=== PATIENT | male | born 1940 | race Caucasian/White ===

== ENCOUNTER 2017-01-15 12:24 | Emergency (ER) | payer MEDICARE, BC ==
[2017-01-15] MEDS ORDERED: Bacitracin Oint 1 GM U/D Packet TOP ONE (12:58)
--- NOTE | 2017-01-15 13:08 | EDM.PDOC ---
ED HPI GENERAL MEDICAL PROBLEM - General Chief Complaint: Laceration Stated Complaint: LEFT INDEX FINGER CUT Time Seen by Provider: 01/15/17 12:50 Source of Information: Reports: Patient History Limitations: Reports: No Limitations - History of Present Illness INITIAL COMMENTS - FREE TEXT/NARRATIVE: 76 yo male thea from [facility] presents with a finger laceration incurred when he was field dressing a deer he shot. Tetanus last 3 yrs ago. Onset: Today Onset Date: 01/15/17 Onset Time: 11:05 Duration: Minutes: Location: Reports: Upper Extremity, Left Quality: Reports: Burning Severity: Mild Improves with: Reports: None Worsens with: Reports: None Associated Symptoms: Reports: No Other Symptoms Treatments [employer]: Reports: Other (see below) (wrapped with gauze) - Related Data Allergies Allergy/AdvReac Type Severity Reaction Status Date / Time No Known Allergies Allergy Verified 09/23/14 13:50 Home Meds: Home Meds Atenolol [Tenormin] 100 mg PO DAILY 01/15/17 [History] Folic Acid [Folic Acid] 1 mg PO DAILY 01/15/17 [History] Losartan [Cozaar] 100 mg PO DAILY 01/15/17 [History] Methotrexate Sodium [Methotrexate] 7.5 mg PO ASDIRECTED 01/15/17 [History] Minoxidil [Loniten] 10 mg PO DAILY 01/15/17 [History] Triamterene/Hydrochlorothiazid [Triamterene-HCTZ 75-50 MG] 1 tab PO DAILY [History] ED ROS GENERAL - Review of Systems Review Of Systems: See Below Constitutional: Reports: No Symptoms Musculoskeletal: Reports: No Symptoms Skin: Reports: Wound Neurological: Reports: No Symptoms ED EXAM, SKIN/RASH Exam: See Below Exam Limited By: No Limitations General Appearance: Alert, WD/WN, No Apparent Distress Neurological: Alert, Oriented, CN II-XII Intact, Normal Cognition, No Motor/ Sensory Deficits Psychiatric: Normal Affect, Normal Mood Skin: Warm, Dry, Normal Color, No Rash, Wound/Incision (2.2 cm linear laceration to the prox L index finger.) Location, Skin: Upper Extremity, Left Characteristics: Linear Associated features: Tenderness Lymphatic: No Adenopathy ED SKIN PROCEDURES - Laceration/Wound Repair Left Proximal Finger Lac/Wound length In cm: 2.2 Appearance: Subcutaneous Distal NVT: Neuro & Vascular Intact Anesthetic Type: Local Local Anesthesia - Lidocaine (Xylocaine): 1% Plain Local Anesthetic Volume: 3cc Skin Prep: Saline Exploration/Debridement/Repair: No Foreign Material Found Closed with: Sutures Suture Size: other (5-0) # of Sutures: 5 Suture Type: Prolene Drain Placement: No Sterile Dressing Applied: Nurse Tetanus Status Addressed: Yes Complications: No Course - Vital Signs Last Recorded V/S: Last Vital Signs Temp 36.1 C 01/15/17 12:54 Pulse 73 01/15/17 12:54 Resp 16 01/15/17 12:54 BP 150/77 H 01/15/17 12:54 Pulse Ox 92 L 01/15/17 12:54 - Orders/Labs/Meds Orders: Active Orders 24 hr Category Date Time Status Bacitracin [Bacitracin Oint 1 GM] Med 01/15/17 12:58 Once 1 dose TOP ONETIME ONE Lidocaine 1% [Xylocaine-MPF 1%] Med 01/15/17 12:58 Once 5 ml INJECT ONETIME ONE Departure - Departure Time of Disposition: 13:25 Disposition: Home, Self-Care 01 Condition: Good Clinical Impression: Finger laceration Qualifiers: Encounter type: initial encounter Finger: index finger Damage to nail status: without damage Foreign body presence: without foreign body Laterality: left Qualified Code(s): S61.211A - Laceration without foreign body of left index finger without damage to nail, initial encounter - Discharge Information Referrals: PCP,None [Primary Care Provider] - - My Orders Last 24 Hours: My Active Orders 01/15/17 12:58 Bacitracin [Bacitracin Oint 1 GM] 1 dose TOP ONETIME ONE Lidocaine 1% [Xylocaine-MPF 1%] 5 ml INJECT ONETIME ONE - Assessment/Plan Last 24 Hours: My Active Orders 01/15/17 12:58 Bacitracin [Bacitracin Oint 1 GM] 1 dose TOP ONETIME ONE Lidocaine 1% [Xylocaine-MPF 1%] 5 ml INJECT ONETIME ONE
== END 2017-01-15 13:36 | disposition home or self-care (01) ==
LOC: JP.ED 12:24
DX: S61.211A Laceration without foreign body of left index finger without damage to nail, initial encounter (principal); Z79.899 Other long term (current) drug therapy; W45.8XXA Other foreign body or object entering through skin, initial encounter
CPT/HCPCS: 12001; 99283; A4217